=== PATIENT | female | born 1930 | race Caucasian/White ===

== ENCOUNTER 2019-05-16 15:44 | Emergency (ER) | payer MEDICARE, BC ==
[~2019-05-16] VITALS: Ht 154.9 cm; Wt 42.6 kg
[2019-05-16] MEDS ORDERED: NORCO 5-325 TA1 EACH PO (18:36)
== END 2019-05-16 19:05 | disposition home or self-care (01) ==
LOC: ED 15:44
DX: S42.111A Displaced fracture of body of scapula, right shoulder, initial encounter for closed fracture (principal); W01.198A Fall on same level from slipping, tripping and stumbling with subsequent striking against other object, initial encounter; I10 Essential (primary) hypertension
CPT/HCPCS: 73030; 96374; 99283-25; J3010